=== PATIENT | female | born 1970 | race Caucasian/White ===

== ENCOUNTER 2016-11-09 11:02 | Outpatient (CLI) | payer BC ==
[2016-11-09 12:40] LABS: #Basophils 0.1 thou/uL (0.0-0.2); #Eosinphils 0.2 thou/uL (0.0-0.7); #Lymphocytes 2.1 thou/uL (1.20-3.40); #Monocytes 0.5 thou/uL (0.11-0.59); #Neutrophils 5.5 thou/uL (1.40-6.50); %Basophils 1.2 % (0.0-1.0); %Lymphocytes 25.1 % (21.0-51.0); %Monocytes 6.3 % (0.0-10.0); %Neutrophils 65.4 % (42.0-75.0); Hemoglobin 15.3 g/dL (12.0-16.0); Mean Corpuscular HGB CONC 34.3 g/dL (32.0-36.0); Mean Corpuscular Hemoglobin 30.9 pg (27.0-31.0); Mean Corpuscular Volume 90.1 fl (81.0-99.0); Mean Platelet Volume 8.4 fL (7.4-10.4); Platelet Count 189 thou/uL (130-400); RBC Distribution Width 11.6 % (11.5-14.5); Red Blood Cell (RBC) Count 4.95 mill/uL (4.20-5.40); White Blood Cell (WBC) Count 8.4 thou/uL (4.8-10.8)
[2016-11-09 12:55] LABS: ALT (SGPT) 43 U/L (8-55); AST (SGOT) 26 U/L (5-34); Albumin 3.7 g/dL (3.5-5.0); Alkaline Phosphatase 94 U/L (40-150); Anion Gap 13 mmol/L (10-20); BUN (Urea Nitrogen) 11 mg/dL (7.0-18.7); Bilirubin, Total 0.7 mg/dL (0.2-1.2); Calc. Creatinine Clearance 0 mL/min (70-130); Calcium 8.9 mg/dL (7.8-10.44); Carbon Dioxide 25 mmol/L (22-29); Cardiac Risk 3.4 (Less than 4.5); Chloride 107 mmol/L (98-107); Cholesterol 228 mg/dl (< 200 Desired); Estimated GFR-MDRD Greater than 90; Globulin 2.5 g/dL (2.4-3.5); Glucose 92 mg/dL (70-105); HDL Cholesterol 68 mg/dL (>60 Neg Risk); LDL Cholesterol, Calculated 146 mg/dL; Potassium 4.1 mmol/L (3.5-5.1); Protein, Total 6.2 g/dL (6.0-8.3); Sodium 141 mmol/L (136-145); Triglycerides 72 mg/dL (Less than 150)
== END 2016-11-09 11:03 | disposition home or self-care (01) ==
LOC: HPCALD 11:02
PROVIDERS: ATTEND Physician Assistant
DX: R42 Dizziness and giddiness (principal)
CPT/HCPCS: 36415; 80053; 80061; 84443; 85025

== ENCOUNTER 2018-08-28 10:38 | Outpatient (CLI) | payer BC ==
--- NOTE | 2018-08-28 20:03 | RAD ---
STERNUM TWO VIEWS 08/28/18 Comparison is made with a 07/30/18 CT scan that showed a manubrial fracture. On today's plain films, one can barely see the fracture of the manubrium. One only discerns a little irregularity in this location and a little off-set on the lateral view. There probably has been very little change in the fracture over the interval. IMPRESSION: Manubrial fracture with little change since 07/30. POS: HOME
== END 2018-08-28 10:39 | disposition home or self-care (01) ==
LOC: BURRAD 10:38
PROVIDERS: ATTEND Physician Assistant
DX: S22.21XD Fracture of manubrium, subsequent encounter for fracture with routine healing (principal)
CPT/HCPCS: 71120